=== PATIENT | female | born 1990 | race African-American/Black ===

== ENCOUNTER 2019-02-25 09:34 | Outpatient (CLI) | payer OTHER ==
--- NOTE | 2019-02-25 11:01 | ULT ---
Ultrasound obstetrical complete: DATE: 02/25/2019 HISTORY: Encounter for supervision of other normal in second trimester. 28-year-old female. FINDINGS: number:[place] lie:Transverse, head to maternal left. Maternal cervix:5 cm. Closed. Placenta:Posterior.. No placenta previa. Amniotic fluid: SCOT:14 cm. heart rate:150 bpm. The following anatomy is visualized without evidence of anomalies: Head, cerebellum, lateral ventricles, four-chamber heart, stomach, kidneys, cord insertion, bladder, cervical spine, thoracic spine, lumbar spine, sacrum, nose and lips, upper extremities, lower extreme venous, and three-vessel cord. biometry: BPD: 4.9 cm: 21 w 0 d HC: 18.6 cm: 21 w 0 d AC:16.8 cm: 21 w 6 d FL:3.5 cm: 21 w 1 d Average ultrasound age: 21 w 2 d Estimated date of delivery: 07/06/2019 Estimated weight: 421 g + -62 g IMPRESSION: 1) 2nd trimester intrauterine gestation. 2) estimated gestational age of: 21 weeks 2 days 3) lie:Transverse 4) no anatomic abnormality identified.
== END 2019-02-25 09:35 | disposition home or self-care (01) ==
LOC: BICULT 09:34
PROVIDERS: ATTEND Family Medicine
DX: Z34.82 Encounter for supervision of other normal pregnancy, second trimester (principal); Z3A.21 21 weeks gestation of pregnancy; O32.2XX0 Maternal care for transverse and oblique lie, not applicable or unspecified
CPT/HCPCS: 76805

== ENCOUNTER 2019-05-29 15:41 | Day surgery (SDC) | payer OTHER ==
[2019-05-29 16:19] VITALS: BP 124/65; TEMP 98.5; BMI 34.3
[2019-05-29] MEDS ORDERED: hydrALAZINE 20 MG/ML VIAL SLOW IVP PRN (17:19)
[2019-05-29] MEDS ORDERED: Lactated Ringer's 1,000 ML IV SCH ×2 (17:30→17:45)
--- NOTE | 2019-05-30 08:21 | PRG ---
DATE OF SERVICE: 05/29/2019 PRIMARY DRIER TENDER: Ryan Good MD CHIEF COMPLAINT: Abdominal pain. HISTORY OF PRESENT ILLNESS: The patient is a 28-year-old G2, P1 female with an intrauterine at 34 weeks and 4 days, who is presenting to Labor and Delivery after experiencing increasing uterine contractions. The patient was seen a couple of days ago by Dr. Good and was given instructions to come if she starts experiencing contractions more frequently. The patient describes her contractions as being every few minutes. She is able to feel all of her contractions about the same. She denies vaginal bleeding or leakage of fluid. She denies recent intercourse. She denies any falls or trauma. The patient does have a history of a prior x1 for arrest of descent and is planning on a with this . She denies any recent illness, fever, fall, headache, chest pain, shortness of breath, nausea, vomiting, diarrhea, constipation, any significant hip problems, knee problems, muscle weakness, vaginal bleeding, leakage of fluid, urinary urgency or frequency. The patient reports that she stopped drinking caffeinated beverages a couple of days ago when her contractions started picking up, but is unable to report how much fluid she is able to consume. PAST MEDICAL HISTORY: Negative. PAST SURGICAL HISTORY: She had 1 prior . SOCIAL HISTORY: Denies drug, alcohol or tobacco use. ALLERGIES: NO KNOWN DRUG ALLERGIES. MEDICATIONS: vitamins. OBSTETRIC LABS: Unavailable at the time of dictation. REVIEW OF SYSTEMS: Per HPI. PHYSICAL EXAMINATION: VITAL SIGNS: Blood pressure 124/65, heart rate of 109, respiratory rate 18, saturating 94-95% on room air and temperature 98.5. GENERAL: The patient appears to be in no acute distress. She is alert, oriented, cooperative, and pleasant to interact with. HEAD: Normocephalic and atraumatic. LUNGS: Clear to auscultation bilaterally. HEART: Has regular rate and rhythm. ABDOMEN: Gravid and soft. EXTREMITIES: Nontender and nonedematous. : Vulva without masses, lesions, or erythema. Vagina is moist. Cervix is closed and thick and high. heart tracing shows a baseline in the 150s to 140s with moderate long-term variability, positive 15 x 15 accelerations, no decelerations. The tocometer showing contractions about every 3 to 4 minutes, lasting under minute. During her stay, the patient has been given 2 L of IV fluids and recheck of her cervix 2 hours later, the patient remained closed. Subjectively, the patient reports her contractions have much improved with IV fluid and a meal and is comfortable going home. ASSESSMENT AND PLAN: The patient is a 28-year-old female with contractions, but no evidence of labor at this time. Fetus has a category 1 tracing and reactive nonstress test. The patient has been given labor precautions. No indication at this time for any further treatment. The patient is being discharged to home with instructions to follow up with her primary OB as scheduled. Job ID: [id number]
== END 2019-05-29 19:55 | disposition home or self-care (01) ==
LOC: L&D/OP 15:41
PROVIDERS: ATTEND Family Medicine
DX: O47.03 False labor before 37 completed weeks of gestation, third trimester (principal); Z3A.34 34 weeks gestation of pregnancy

== ENCOUNTER 2019-07-01 05:17 | Inpatient (IN) | payer OTHER ==
[2019-07-01] MEDS ORDERED: CEFAZOLIN 2 GM in Premix Bag 1 BAG IVPB SCH (06:05)
[2019-07-01] MEDS ORDERED: Bicitra 30 ML UDCUP PO SCH (06:05)
[2019-07-01] MEDS ORDERED: hydrALAZINE 20 MG/ML VIAL SLOW IVP PRN ×2 (06:05→10:39)
[2019-07-01] MEDS ORDERED: Lactated Ringer's 1,000 ML IV SCH (06:05)
[2019-07-01] MEDS ORDERED: Ondansetron PF 4 MG/2 ML Vial IVP PRN ×3 (06:05→10:39)
[2019-07-01] MEDS ORDERED: Promethazine HCl 25 MG/ML VIAL IM PRN ×2 (06:05→07:49)
[2019-07-01 06:10] VITALS: BMI 35.2
[2019-07-01 06:39] LABS: Hemoglobin 11.7 g/dL (12.0-16.0); Mean Corpuscular HGB CONC 32.9 g/dL (32.0-36.0); Mean Corpuscular Hemoglobin 28.9 pg (27.0-31.0); Platelet Count 307 thou/uL (130-400); RBC Distribution Width 12.8 % (11.5-14.5); Red Blood Cell (RBC) Count 4.04 mill/uL (4.20-5.40); White Blood Cell (WBC) Count 7.9 thou/uL (4.8-10.8)
[2019-07-01 07:14] LABS: HBSAg Index 0.19 S/CO (0-0.99); Hep B Surf Ag Non-Reactive S/CO (NonReactive); Syphilis Antibody Nonreactive (Nonreactive); Syphilis Antibody Index 0.03 S/CO (<1.00 Non-Reactive)
[2019-07-01] MEDS ORDERED: MORPHINE 5 MG/10 ML PF VIAL ONE (07:18)
[2019-07-01] MEDS ORDERED: Oxytocin 10 UNITS/ML VIAL ONE (07:18)
[2019-07-01] MEDS ORDERED: PHENYLEPHRINE-NS 100 MCG/ML 10 ML SYRINGE ONE ×2 (07:32→20:26)
[2019-07-01] MEDS ORDERED: Ondansetron HCl/PF 4 MG/2 ML Vial IVP PRN (07:49)
[2019-07-01] MEDS ORDERED: L&D-Morphine 4 MG/ML VIAL SLOW IVP PRN (07:49)
[2019-07-01] MEDS ORDERED: Meperidine HCl/PF 25 MG/ML VIAL SLOW IVP PRN (07:49)
[2019-07-01] MEDS ORDERED: Promethazine HCl 25 MG SUPP PR PRN (07:49)
[2019-07-01] MEDS ORDERED: Naloxone HCl 0.4 mg/ml Vial IVP PRN ×2 (07:49)
[2019-07-01] MEDS ORDERED: Ketorolac Tromethamine 30 MG/ML VIAL IVP PRN (07:49)
[2019-07-01] MEDS ORDERED: diphenhydrAMINE 50 MG/ML VIAL IVP PRN (07:49)
[2019-07-01] MEDS ORDERED: HYDROmorphone 2 MG/ML VIAL SLOW IVP PRN (07:49)
[2019-07-01] MEDS ORDERED: Naloxone HCl 0.4 mg/ml Vial IV PRN (07:49)
[2019-07-01] MEDS ORDERED: Communication Order-Pharmacy FS SCH (08:00)
[2019-07-01] MEDS ORDERED: Ketorolac Tromethamine 30 MG/ML VIAL IVP SCH (08:00)
[2019-07-01 08:07] LABS: Actual Bicarbonate (HCO3a) 25.1 mEq/L (22-28); Analyzer IN Cardio OR; Base Excess (BEa) -3.8 mEq/L (-2.0 to +3.0)
[2019-07-01 08:08] LABS: Actual Bicarbonate (HCO3v) 24 mEq/L (22-28); Analyzer IN Cardio OR; pH (Cord, venous) 7.25 (7.32-7.43)
[2019-07-01] MEDS ORDERED: Ondansetron PF 4 MG/2 ML Vial ONE ×2 (08:16→20:26)
[2019-07-01] MEDS ORDERED: NS / Oxytocin 40 units/1000ml 1,000 ML ONE (09:19)
[2019-07-01] MEDS ORDERED: Meperidine HCl/PF 25 MG/ML VIAL ONE (09:35)
[2019-07-01] MEDS ORDERED: Ketorolac Tromethamine 30 MG/ML VIAL ONE (10:27)
[2019-07-01] MEDS ORDERED: Bisacodyl 10 MG SUPP PR PRN (10:39)
[2019-07-01] MEDS ORDERED: diphenhydrAMINE 25 MG CAP PO PRN (10:39)
[2019-07-01] MEDS ORDERED: Adacel (T-DAP) 0.5 ML SYRINGE IM ONE (10:39)
[2019-07-01] MEDS ORDERED: NS / Oxytocin 40 units/1000ml 1,000 ML IV SCH (10:39)
[2019-07-01] MEDS ORDERED: Lanolin Ointment 7 GM TUBE TOP PRN (10:39)
[2019-07-01] MEDS ORDERED: Docusate Calcium (SURFAK) 240 MG CAP PO SCH (11:15)
[2019-07-01] MEDS ORDERED: Prenatal Vitamin 1 TAB PO SCH (11:15)
[2019-07-01] MEDS ORDERED: Ferrous Sulfate 325 MG TAB PO SCH (11:15)
[2019-07-01] MEDS: Ferrous Sulfate 325 MG TAB PO SCH (14:31)
[2019-07-01] MEDS: Ketorolac Tromethamine 30 MG/ML VIAL IVP SCH ×2 (16:05→21:54)
[2019-07-01] MEDS ORDERED: Meperidine HCl/PF 25 MG/ML VIAL IM PRN (20:00)
[2019-07-01] MEDS ORDERED: Sodium Chloride 0.9% 0 ML ONE (21:38)
[2019-07-01] MEDS: HYDROcodone/Acetaminophen 5/325 mg Tablet PO PRN (21:50)
[2019-07-01] MEDS: Docusate Calcium (SURFAK) 240 MG CAP PO SCH (21:51)
[2019-07-01] MEDS: Simethicone Chewable 80 MG TAB PO PRN (21:53)
[2019-07-02] MEDS: HYDROcodone/Acetaminophen 5/325 mg Tablet PO PRN ×4 (03:08→16:39)
[2019-07-02] MEDS: Ketorolac Tromethamine 30 MG/ML VIAL IVP SCH (04:01)
[2019-07-02 06:16] LABS: Hemoglobin 10.8 g/dL (12.0-16.0); Mean Corpuscular HGB CONC 33.9 g/dL (32.0-36.0); Mean Corpuscular Hemoglobin 29.6 pg (27.0-31.0); Mean Corpuscular Volume 87.1 fL (78.0-98.0); Mean Platelet Volume 6.6 fL (7.4-10.4); Platelet Count 268 thou/uL (130-400); RBC Distribution Width 12.6 % (11.5-14.5); Red Blood Cell (RBC) Count 3.65 mill/uL (4.20-5.40)
[2019-07-02] MEDS: Docusate Calcium (SURFAK) 240 MG CAP PO SCH ×2 (08:03→21:44)
[2019-07-02] MEDS: Prenatal Vitamin 1 TAB PO SCH (08:03)
[2019-07-02] MEDS: Simethicone Chewable 80 MG TAB PO PRN ×2 (08:03→16:39)
[2019-07-02] MEDS: Ferrous Sulfate 325 MG TAB PO SCH ×2 (09:53→09:54)
[2019-07-02] MEDS: Ibuprofen 800 MG TAB PO SCH ×2 (13:52→21:44)
[2019-07-03] MEDS: HYDROcodone/Acetaminophen 5/325 mg Tablet PO PRN ×5 (00:11→21:40)
[2019-07-03] MEDS: Ibuprofen 800 MG TAB PO SCH ×3 (06:38→21:40)
[2019-07-03] MEDS: Ferrous Sulfate 325 MG TAB PO SCH ×2 (07:46→17:14)
[2019-07-03] MEDS: Prenatal Vitamin 1 TAB PO SCH (09:19)
[2019-07-03] MEDS: Docusate Calcium (SURFAK) 240 MG CAP PO SCH ×2 (09:19→20:33)
[2019-07-03] MEDS: Simethicone Chewable 80 MG TAB PO PRN (17:15)
[2019-07-04] MEDS: HYDROcodone/Acetaminophen 5/325 mg Tablet PO PRN ×3 (02:05→13:43)
[2019-07-04] MEDS: Ibuprofen 800 MG TAB PO SCH ×2 (06:53→13:41)
[2019-07-04] MEDS: Ferrous Sulfate 325 MG TAB PO SCH (07:42)
[2019-07-04 08:03] VITALS: BP 116/78; TEMP 98.2
[2019-07-04] MEDS: Docusate Calcium (SURFAK) 240 MG CAP PO SCH (09:40)
[2019-07-04] MEDS: Simethicone Chewable 80 MG TAB PO PRN ×2 (09:40→13:41)
[2019-07-04] MEDS: Prenatal Vitamin 1 TAB PO SCH (09:40)
--- NOTE | 2019-07-07 09:20 | OP ---
DATE OF PROCEDURE: 07/01/2019 RESIDENT SURGEON: Kendal Luis DO PROCEDURE: Repeat low transverse section. PREOPERATIVE DIAGNOSES: 1. Term intrauterine . 2. Previous . POSTOPERATIVE DIAGNOSES: 1. Term intrauterine , delivered. 2. Previous . ANESTHESIA: Spinal. INDICATION: This is a 29-year-old, G2, P1-0-0-1 at 39 and 2 weeks gestation who presents for repeat scheduled . PROCEDURE IN DETAIL: After risks, benefits, and alternatives were explained to the patient, she gave informed consent. Preoperative antibiotics included cefazolin 2 g IV. The patient was taken to the operating room and spinal anesthesia was initiated. She was placed in a supine position with a left tilt and prepped and draped in the usual sterile fashion. A Pfannenstiel incision was made with a scalpel and carried down to the level of the fascia, which was sharply nicked. The fascial cut was extended bilaterally with Thomas scissors. The inferior and superior edges of the fascial edges were elevated with Gladys clamps. The underlying rectus muscles were sharply and bluntly dissected free. The recti were divided digitally and retracted manually. The peritoneum was entered bluntly and retracted manually. A bladder blade was placed. A low transverse score was made with a scalpel. The uterus was entered in the midline with a scalpel. Clear fluid was seen. Hysterotomy was extended manually. The infant was noted to be vertex and easily delivered by fundal pressure. Mouth and nares were bulb suctioned. Cord was clamped and cut and grossly normal female was handed to the waiting nurse. Cord blood was obtained. Placenta was manually extracted, found to be intact with three-vessel cord and discarded. The uterus was externalized and endometrium was curetted with a dry lap. The bladder blade was replaced and the uterus was closed with a running locking #1 Monocryl, followed by several [id number] stitches. Following this, hemostasis was noted. Seprafilm was then placed on the uterus prior to internalization. The abdomen was irrigated with saline and suctioned free of clots. The uterus was internalized and hysterotomy was again noted to be hemostatic. The fascia was closed with a running nonlocking 0 PDS suture. After the uterus was internalized and hysterotomy was again noted to be hemostatic. The peritoneum was then closed using 3-0 Vicryl in a running nonlocking fashion. The fascia was then closed with a running nonlocking 0 PDS suture. The subcutaneous tissue was irrigated and bleeders were cauterized. The subcutaneous tissue was then brought together using 2-0 plain gut with interrupted sutures. The skin was approximated with marian and a pressure dressing was applied. All counts were correct. Patient tolerated the procedure well, was taken to the recovery room in stable condition. QUANTITATIVE BLOOD LOSS: 639 mL. COMPLICATIONS: None. SPECIMEN: Cord blood sent to the lab for blood type. FINDINGS: Grossly normal female infant with Apgars of 1 and 9 at one and five minutes respectively. Grossly normal placenta with 3-vessel cord discarded. DRAINS: Ponce to gravity, draining clear urine. ADDENDUM: Cord gas was sent given patient's initial presentation at and arterial pH was noted to be 7.217 with a base excess of 3.8. Job ID: [id number]
== END 2019-07-04 17:08 | disposition home or self-care (01) | DRG 788 ==
LOC: L&D 05:17 → 3SW 10:54
PROVIDERS: ADMIT Family Medicine; ATTEND Family Medicine
PROC: 10D00Z1 Extraction of Products of Conception, Low, Open Approach (ICD-10-PCS; principal; 2019-07-01)
DX: O34.211 Maternal care for low transverse scar from previous cesarean delivery (principal); O99.824 Streptococcus B carrier state complicating childbirth; Z37.0 Single live birth; Z3A.39 39 weeks gestation of pregnancy
CPT/HCPCS: 36415; 51702; 82805; 85027; 86780; 86850; 86900; 86901; 87340; J0690; J1885; J2175; J2274; J2405; J2590